=== PATIENT | male | born 1945 | race Caucasian/White ===

== ENCOUNTER → 2018-03-24 | Outpatient (CLI) | payer OTHER, BC | END | disposition home or self-care (01) | LOC: NUC 09:52 | DX: M89.9 Disorder of bone, unspecified (principal); Z96.611 Presence of right artificial shoulder joint; M19.042 Primary osteoarthritis, left hand; M19.041 Primary osteoarthritis, right hand; M47.894 Other spondylosis, thoracic region; M47.896 Other spondylosis, lumbar region | CPT/HCPCS: 78306; A9503 ==

== ENCOUNTER 2018-06-17 19:46 | Emergency (ER) | payer OTHER, BC ==
[~2018-06-17] VITALS: Ht 175.3 cm; Wt 91.7 kg
[2018-06-17 22:27] VITALS: BP 145/82
== END 2018-06-17 22:27 | disposition home or self-care (01) ==
LOC: EME → EDBD 19:46 → EME 22:27
DX: R55 Syncope and collapse (principal); S01.112A Laceration without foreign body of left eyelid and periocular area, initial encounter; S01.21XA Laceration without foreign body of nose, initial encounter; W22.03XA Walked into furniture, initial encounter; Y92.000 Kitchen of unspecified non-institutional (private) residence as the place of occurrence of the external cause; Z23 Encounter for immunization; I10 Essential (primary) hypertension; N40.0 Benign prostatic hyperplasia without lower urinary tract symptoms
CPT/HCPCS: 70450; 70486; 72125; 93005; 99281; 99285